=== PATIENT | female | born 1990 | race African-American/Black ===

== ENCOUNTER → 2017-03-03 | Day surgery (SDC) | payer BC ==
[~2017-03-03] MED LIST: BC PILL PO; FENTANYL CITRATE/PF 100MCG/2 ML INJ ONE; KETAMINE HCL INJ 50 MG/ML 10 ML VIAL ONE; LIDOCAINE HCL 2% LOCAL INJ 5 ML SDV VIAL INJ ONE; LOESTRIN1 EAC1 PO; METFORMIN HCL1000 MG PO; MIDAZOLAM HCL 2 MG/2 ML VIAL ONE; PROPOFOL IV EMULSION 10 MG/ML 50 ML VIAL ONE
--- NOTE | 2017-03-04 09:38 | Operative Report ---
DATE OF PROCEDURE: March 03, 2017 REFERRING PHYSICIAN: Dr. Fercho Damon. PROCEDURE PERFORMED: Esophagogastroduodenoscopy with esophageal dilatation. INDICATIONS FOR ESOPHAGOGASTRODUODENOSCOPY: Dysphagia, nausea and vomiting. MEDICATION: Patient was done under MAC. Please see anesthesiologist's note. PROCEDURE: With patient in the left lateral decubitus position, flexible fiberoptic Olympus gastroscope was introduced into the esophagus under direct visualization without any difficulty. There was some patchy erythema noted in distal esophagus. There was a mild stricture noted at the GE junction that was dilated to a size 52-[place]. The scope was then advanced with ease into the stomach. Mucosa overlying the antrum and the body revealed some patchy erythema and low-grade edema. Biopsies were obtained and sent to stain for H. pylori. Pylorus appeared to be of normal contour and shape. Was intubated with ease and the scope was advanced all the way to the 2nd portion of the duodenum. The scope was then withdrawn slowly. Mucosa overlying the proximal 2nd portion and the duodenal bulb appeared to be within normal limits. The scope was then withdrawn back into the stomach and retroflexed and mucosa overlying the fundus and the cardia appeared to be within normal limits. The scope was then straightened out. The stomach was decompressed. Scope was subsequently withdrawn. Patient tolerated the procedure well. IMPRESSION: 1. Distal esophagitis, mild. 2. Esophageal stricture at gastroesophageal junction dilated to size 52-[place]. 3. Gastritis biopsied. Biopsy sent stain for H. pylori. PLAN: Follow up histology. Initiate Protonix 40 mg 1 p.o. 40 mg 1 p.o. q.a.m. a.c. Job#: [id number] cc:FERCHO DAMON DO
== END | disposition home or self-care (01) ==
LOC: OR 10:25
PROVIDERS: ATTEND Internal Medicine Gastroenterology
DX: K22.2 Esophageal obstruction (principal); K29.70 Gastritis, unspecified, without bleeding; K20.9 Esophagitis, unspecified; E28.2 Polycystic ovarian syndrome; E11.9 Type 2 diabetes mellitus without complications; Z68.33 Body mass index [BMI] 33.0-33.9, adult
CPT/HCPCS: 36415; 43239; 43450; 81025; 82948; J2001; J2250